=== PATIENT | female | born 1970 | race Caucasian/White ===

== ENCOUNTER 2018-10-28 12:16 | Day surgery (SDC) | payer BC ==
[2018-10-28] MEDS ORDERED: Xylocaine 1% Vial 30 ML PF IJ ONE (12:17)
[2018-10-28] MEDS ORDERED: Depo-Medrol 40 MG/ML IM ONE (12:17)
[2018-10-28] MEDS ORDERED: Xylocaine-Mpf 2% 5 Ml Vial IJ ONE (12:17)
[2018-10-28] MEDS ORDERED: DIPRIVAN 200 MG/20 ML IV ONE (14:20)
--- NOTE | 2018-10-28 14:58 | XRAY ---
Indication: Bilateral L3-L5 MBB. Intraoperative fluoroscopy was provided for 19 seconds. Single digital spot image submitted for interpretation demonstrates posterior needle tips projecting over the expected course of the left and right L3-L5 nerve roots. Correlate with intraoperative findings/report. Incidental L3-L5 intervertebral spacers and L4-L5 laminectomy.
--- NOTE | 2018-10-28 15:27 | XRAY ---
19 seconds fluoroscopy time in surgery for bilateral L3-L5 MBB.
[2018-10-28] MEDS ORDERED: Lactated Ringers 1,000 ML IV ONE (16:47)
== END 2018-10-28 14:52 | disposition home or self-care (01) ==
LOC: SDC-PAIN 12:16
PROVIDERS: ATTEND Psychiatry & Neurology Pain Medicine
DX: M47.816 Spondylosis without myelopathy or radiculopathy, lumbar region (principal); I10 Essential (primary) hypertension; F41.8 Other specified anxiety disorders; Z79.899 Other long term (current) drug therapy
CPT/HCPCS: 64493; 64494; 72020; 77002; J1030; J2001; J2704

== ENCOUNTER 2018-11-18 10:14 | Day surgery (SDC) | payer BC ==
[2018-11-18] MEDS ORDERED: Depo-Medrol 40 MG/ML IM ONE (10:15)
[2018-11-18] MEDS ORDERED: Sodium Chloride 0.9(Preservative Free) 10 ML IJ ONE (10:15)
[2018-11-18] MEDS ORDERED: Xylocaine 1% Vial 30 ML PF IJ ONE (10:15)
[2018-11-18] MEDS ORDERED: DIPRIVAN 200 MG/20 ML IV ONE (11:47)
[2018-11-18] MEDS ORDERED: Ketamine HCl 50 MG/ML ONE (11:47)
--- NOTE | 2018-11-18 12:21 | XRAY ---
Indication: Lumbar MARGARET. Intraoperative fluoroscopy was provided for 14 seconds. 2 digital spot images submitted for interpretation demonstrates midline needle tip just posterior to the lumbosacral interspace. Correlate with intraoperative findings/report. Incidental L3-L4 and L4-L5 vertebral spacers with L4 laminectomy defect.
[2018-11-18] MEDS ORDERED: Lactated Ringers 1,000 ML IV ONE (14:20)
--- NOTE | 2018-11-19 08:49 | XRAY ---
14 seconds fluoroscopy time in surgery for lumbar MARGARET.
== END 2018-11-18 12:20 | disposition home or self-care (01) ==
LOC: SDC-PAIN 10:14
PROVIDERS: ATTEND Psychiatry & Neurology Pain Medicine
DX: M54.16 Radiculopathy, lumbar region (principal); F41.8 Other specified anxiety disorders; I10 Essential (primary) hypertension; Z79.899 Other long term (current) drug therapy
CPT/HCPCS: 62323; 72100; 77003; J1030; J2001; J2704; Q9966

== ENCOUNTER 2018-12-16 11:37 | Day surgery (SDC) | payer BC ==
[2018-12-16] MEDS ORDERED: Depo-Medrol 40 MG/ML IM ONE (11:38)
[2018-12-16] MEDS ORDERED: Marcaine 0.5% SDV 10 ML IJ ONE (11:38)
[2018-12-16] MEDS ORDERED: Ketamine HCl 50 MG/ML ONE (12:32)
[2018-12-16] MEDS ORDERED: DIPRIVAN 200 MG/20 ML IV ONE (12:32)
[2018-12-16] MEDS ORDERED: Lactated Ringers 1,000 ML IV ONE (14:01)
--- NOTE | 2018-12-16 14:03 | XRAY ---
Indication: Bilateral L3-S1 MBB. Intraoperative fluoroscopy was provided for 13 seconds. Single digital spot image submitted for interpretation demonstrates posterior needle tips projecting over the expected course of the left and right L3-S1 nerve roots. Correlate with intraoperative findings/report. Incidental L3-L5 intervertebral spacers and L4-L5 laminectomy.
--- NOTE | 2018-12-16 16:36 | XRAY ---
13 seconds of fluoroscopy was used in surgery for a bilateral L3-L4, L4-L5, and L5-S1 MBB.
== END 2018-12-16 13:08 | disposition home or self-care (01) ==
LOC: SDC-PAIN 11:37
PROVIDERS: ATTEND Psychiatry & Neurology Pain Medicine
DX: M47.816 Spondylosis without myelopathy or radiculopathy, lumbar region (principal); I10 Essential (primary) hypertension; F41.8 Other specified anxiety disorders; Z79.899 Other long term (current) drug therapy
CPT/HCPCS: 64493; 64494; 64495; 72020; 77002; J1030; J2704

== ENCOUNTER 2019-01-06 09:42 | Day surgery (SDC) | payer BC ==
[2019-01-06] MEDS ORDERED: Depo-Medrol 40 MG/ML IM ONE (09:43)
[2019-01-06] MEDS ORDERED: Sodium Chloride 0.9(Preservative Free) 10 ML IJ ONE (09:43)
[2019-01-06] MEDS ORDERED: Ketamine HCl 50 MG/ML ONE (11:27)
[2019-01-06] MEDS ORDERED: DIPRIVAN 200 MG/20 ML IV ONE (11:27)
[2019-01-06] MEDS ORDERED: Lactated Ringers 1,000 ML IV ONE (12:49)
--- NOTE | 2019-01-06 13:41 | XRAY ---
Indication: Right L4-S1 MARGARET. Intraoperative fluoroscopy was provided for 52 seconds. 4 digital spot images submitted for interpretation demonstrate posterior needle tips projecting over the expected right L4 and L5 nerve roots. Small amount of contrast injected for needle tip placement. Correlate with intraoperative findings/report. Incidental L3-L5 intervertebral spacers with L4 laminectomy defect.
--- NOTE | 2019-01-06 13:50 | XRAY ---
52 seconds fluoroscopy time in surgery for right L4-S1 MARGARET.
== END 2019-01-06 11:55 | disposition home or self-care (01) ==
LOC: SDC-PAIN 09:42
PROVIDERS: ATTEND Psychiatry & Neurology Pain Medicine
DX: M54.16 Radiculopathy, lumbar region (principal); I10 Essential (primary) hypertension; F41.8 Other specified anxiety disorders; Z79.899 Other long term (current) drug therapy
CPT/HCPCS: 64483; 64484; 72100; 77003; J1030; J2704; Q9966